=== PATIENT | male | born 1970 | race Asian ===

== ENCOUNTER 2020-10-28 10:20 | Emergency (ER) | payer OTHER ==
[~2020-10-28] VITALS: Ht 170.2 cm; Wt 74.8 kg
--- NOTE | 2020-10-28 10:30 | NUR ---
at bedside for assessment
[2020-10-28] MEDS: IBUPROFEN 600 MG TABLET PO ONE (10:37)
[2020-10-28] MEDS ORDERED: IBUPROFEN 600 MG TABLET ONE (10:42)
[2020-10-28 10:54] LABS: CREATININE 1.1 mg/dL (0.6-1.3)
[2020-10-28 10:55] LABS: BASOPHILS # (AUTO) 0.1 K/uL (0.0-8.0); BASOPHILS % (AUTO) 0.6 % (0.0-2.0); EOSINOPHILS # (AUTO) 0.2 K/uL (0.0-0.7); EOSINOPHILS % (AUTO) 2.3 % (0.0-7.0); HEMATOCRIT 48.3 % (36.7-47.1); HEMOGLOBIN 16.6 g/dL (12.5-16.3); MEAN CORPUSCULAR HEMOGLOBIN 32.7 uug (23.8-33.4); MEAN CORPUSCULAR HGB CONC 34 g/dL (32.5-36.3); MEAN CORPUSCULAR VOLUME 95.1 fL (73.0-96.2); MONOCYTES # (AUTO) 0.6 K/uL (2.0-10.0); NEUTROPHILS # (AUTO) 6.7 K/uL (1.8-8.9); NEUTROPHILS % (AUTO) 63.1 % (38.5-71.5); PLATELET COUNT (AUTO) 282 K/uL (152-348); RED BLOOD CELL COUNT(AUTO) 5.07 MIL/uL (4.06-5.63); WHITE BLOOD COUNT (AUTO) 10.6 K/uL (3.6-10.2)
[2020-10-28 11:00] LABS: URIC ACID 7.7 mg/dL (3.5-7.2)
[2020-10-28] MEDS ORDERED: IBUP-1955 PO (11:23)
[2020-10-28] MEDS ORDERED: COLC0.6C3 PO (11:23)
[2020-10-28] MEDS ORDERED: COLCHICINE 0.6 MG TABLET ONE ×2 (11:38→11:42)
[2020-10-28] MEDS: COLCHICINE 0.6 MG TABLET PO ONE ×2 (11:39)
--- NOTE | 2020-10-28 11:40 | NUR ---
Patient discharged to home in stable condition. Instructed on how to use cruches properly, no signs of acute distress noted. Written and verbal after care instructions given. Patient verbalizes understanding of instructions. Stressed follow up or return to ER for worsening s/s.
[2020-10-28 11:42] VITALS: BP 127/94
== END 2020-10-28 11:40 | disposition home or self-care (01) ==
LOC: ER 10:20
DX: M10.9 Gout, unspecified (principal); I10 Essential (primary) hypertension
CPT/HCPCS: 36415; 73630; 84550; 85025; A4663